=== PATIENT | female | born 1970 | race Caucasian/White ===

== ENCOUNTER 2023-03-15 21:39 | Emergency (ER) | payer MEDICAID ==
[~2023-03-15] VITALS: Ht 162.6 cm; Wt 99.8 kg
[2023-03-15 22:06] VITALS: BP 112/70; PULSE 87; RESP 16; TEMP 97.8; O2SAT 97
[2023-03-16] MEDS ORDERED: KETOROLAC 30 MG/ML VIAL IM ONE (00:40)
[2023-03-16] MEDS ORDERED: AMOXIL/CLAVULANATE 875/125 MG 1 TAB PO ONE (00:40)
[2023-03-16] MEDS ORDERED: AMOX1TAB8 PO (00:42)
[2023-03-16] MEDS ORDERED: CIPR7.5D2 OT (00:42)
== END 2023-03-16 01:02 | disposition home or self-care (01) ==
LOC: MED 21:39
DX: H66.91 Otitis media, unspecified, right ear (principal); H60.91 Unspecified otitis externa, right ear; Z79.2 Long term (current) use of antibiotics
CPT/HCPCS: 96372; 99283; J1885

== ENCOUNTER 2023-05-15 22:41 | Emergency (ER) | payer MEDICAID ==
[~2023-05-15] VITALS: Ht 165.1 cm; Wt 104.3 kg
[~2023-05-15 22:41] MED LIST: AMOX1TAB8 PO; CIPR7.5D2 OT
[2023-05-15 23:14] VITALS: BP 101/73; PULSE 86; RESP 18; TEMP 98.3; O2SAT 98
[2023-05-16] MEDS ORDERED: COROTSOL LEFT EAR (01:07)
[2023-05-16] MEDS ORDERED: IBUP-2213 PO (01:07)
[2023-05-16] MEDS: MORPHINE SULFATE 4 MG/ML SYR IM ONE (01:07)
[2023-05-16] MEDS ORDERED: MORPHINE SULFATE 4 MG/ML SYR ONE (01:09)
[2023-05-16 01:51] VITALS: BP 101/73; PULSE 86; RESP 18; TEMP 98.3; O2SAT 98
== END 2023-05-16 01:48 | disposition home or self-care (01) ==
LOC: MED 22:41
DX: H60.91 Unspecified otitis externa, right ear (principal); F32.9 Major depressive disorder, single episode, unspecified; Z98.890 Other specified postprocedural states; Z79.899 Other long term (current) drug therapy
CPT/HCPCS: 96372; 99283; J2270

== ENCOUNTER 2023-12-11 17:00 | Observation (INO) | payer MEDICAID ==
[~2023-12-11] VITALS: Ht 157.5 cm; Wt 67.6 kg
[2023-12-11 17:00] VITALS: BP 114/70; PULSE 110; RESP 25; TEMP 97.3; O2SAT 94
[~2023-12-11 17:00] MED LIST changes: +COROTSOL LEFT EAR; +IBUP-2213 PO
[2023-12-11] MEDS ORDERED: ALBUTEROL 0.083% 2.5 MG/3 ML NEBU INH ONE (17:08)
[2023-12-11] MEDS ORDERED: IPRATROPIUM 0.02% 0.5 MG/2.5 ML NEBU INH ONE (17:09)
[2023-12-11] MEDS: EPINEPHrine 1 MG/ML AMP IM ONE (17:14)
[2023-12-11] MEDS: FAMOTIDINE 20 MG/2 ML VIAL IVP ONE (17:16)
[2023-12-11] MEDS: ONDANSETRON 4 MG/2 ML VIAL IVP ONE (17:17)
[2023-12-11] MEDS: methylPREDNISolone SS 125 MG/2 ML VIAL IVP ONE (17:17)
[2023-12-11] MEDS: IPRATROPIUM 0.02% 0.5 MG/2.5 ML NEBU INH ONE (17:27)
[2023-12-11] MEDS: ALBUTEROL 0.083% 2.5 MG/3 ML NEBU INH ONE (17:27)
[2023-12-11 17:28] VITALS: PULSE 93; PULSE 94; RESP 24; RESP 25; O2SAT 96; O2SAT 97
[2023-12-11] MEDS ORDERED: LORazepam 1 MG TAB PO PRN (19:10)
[2023-12-11] MEDS ORDERED: ZOLPIDEM 5 MG TAB PO PRN (19:10)
[2023-12-11] MEDS ORDERED: ACETAMINOPHEN 325 MG TAB PO PRN (19:10)
[2023-12-11] MEDS ORDERED: ONDANSETRON 4 MG/2 ML VIAL IVP PRN (19:10)
[2023-12-11 20:51] VITALS: PULSE 75; RESP 16; O2SAT 95
[2023-12-11] MEDS: BUDESONIDE 0.5 MG/2 ML NEBU INH SCH (20:51)
[2023-12-11 21:00] VITALS: PULSE 75; RESP 19; O2SAT 95
[2023-12-12] VITALS: BP 112/61; PULSE 75; PULSE 76; RESP 18; TEMP 97.3; O2SAT 97
[2023-12-12] MEDS: methylPREDNISolone SS 40 MG/ML VIAL IVP SCH (00:12)
[2023-12-12] MEDS: HYDROcodone/APAP 5/325 MG 1 TAB TAB PO PRN (00:13)
[2023-12-12] MEDS: ALBUTEROL SULFATE/IPRATROPIU 3 ML SOL IH SCH (01:00)
[2023-12-12 04:00] VITALS: BP 112/57; PULSE 72; PULSE 80; RESP 18; TEMP 97.1; O2SAT 98
[2023-12-12] MEDS ORDERED: methylPREDNISolone SS 40 MG/ML VIAL ONE ×3 (06:00→12:00)
[2023-12-12 07:26] LABS: BASOPHILS # (AUTO) 0.1 K/uL (0.00-0.22); BASOPHILS % (AUTO) 0.7 % (0.0-2.0); HEMATOCRIT 38.6 % (36-48); HEMOGLOBIN 12.8 g/dL (12.0-16.0); LYMPHOCYTES # (AUTO) 0.9 K/uL (2.5-16.5); LYMPHOCYTES % (AUTO) 10.2 % (20.5-51.1); MEAN CORPUSCULAR HEMOGLOBIN 29 pg (27-31); MEAN CORPUSCULAR HGB CONC 33 g/dL (33-37); MEAN CORPUSCULAR VOLUME 88.3 fL (80-94); MONOCYTES # (AUTO) 0.1 K/uL (0.8-1.0); MONOCYTES % (AUTO) 1.1 % (1.7-9.3); NEUTROPHILS # (AUTO) 7.8 K/uL (1.8-7.7); PLATELET COUNT (AUTO) 425 K/uL (140-450); RED BLOOD CELL COUNT(AUTO) 4.37 MIL/uL (4.20-5.40); RED CELL DISTRIBUTION WIDTH 13.4 % (11.6-13.7); WHITE BLOOD COUNT (AUTO) 8.9 K/uL (4.8-10.8)
[2023-12-12 07:43] LABS: ALBUMIN 3.6 g/dL (3.4-5.0); ANION GAP 13.8 (8-16); CALCIUM 9.2 mg/dL (8.5-10.1); CARBON DIOXIDE 25.8 mmol/L (21-32); CREATININE 0.8 mg/dL (0.6-1.3); MAGNESIUM 2.1 mg/dL (1.8-2.4); POTASSIUM 4.6 mmol/L (3.5-5.1); TOTAL BILIRUBIN 0.2 mg/dL (0.0-1.0); TOTAL PROTEIN, SERUM 7.4 g/dL (6.4-8.2)
[2023-12-12 08:00] VITALS: BP 95/54; PULSE 67; PULSE 69; RESP 17; TEMP 97.7; O2SAT 96
[2023-12-12] MEDS: DOCUSATE SODIUM 100 MG GELCAP PO SCH (08:32)
[2023-12-12] MEDS ORDERED: PRED20TA5 PO (11:25)
[2023-12-12] MEDS ORDERED: DIPH25TA53 PO (11:25)
[2023-12-12] MEDS ORDERED: FAMO-90 PO (11:25)
[2023-12-12] MEDS: ENOXAPARIN 40 MG/0.4 ML SYR SUBQ SCH (11:38)
[2023-12-12 12:00] VITALS: BP 103/54; PULSE 78; PULSE 79; RESP 18; TEMP 97; O2SAT 98
[2023-12-12 13:54] VITALS: PULSE 75; RESP 16; O2SAT 100
[2023-12-12 14:26] VITALS: BP 103/54; PULSE 78; RESP 18; TEMP 97
== END 2023-12-12 15:00 | disposition home or self-care (01) ==
LOC: MED 17:00 → MTU 19:32
PROVIDERS: ADMIT Student in an Organized Health Care Education/Training Program; ATTEND Student in an Organized Health Care Education/Training Program
DX: T63.441A Toxic effect of venom of bees, accidental (unintentional), initial encounter (principal); T78.2XXA Anaphylactic shock, unspecified, initial encounter; I10 Essential (primary) hypertension; E78.5 Hyperlipidemia, unspecified; H66.91 Otitis media, unspecified, right ear; Z98.86 Personal history of breast implant removal; Z79.899 Other long term (current) drug therapy; Y92.89 Other specified places as the place of occurrence of the external cause
CPT/HCPCS: 36415; 80053; 83735; 85025; 87081; 94640; 96372; 96374; 96375; 96376; 99291; G0378; J0171; J1650; J2919; J3490; J7613; J7626; J7644